=== PATIENT | female | born 1955 | race Caucasian/White ===

== ENCOUNTER 2023-04-11 06:00 | Outpatient (RCR) | payer MEDICARE, SELFPAY | END 2023-05-09 23:59 | disposition home or self-care (01) | LOC: MPT 06:00 | PROVIDERS: PCP Family Medicine; Visit Provider Family Medicine | DX: M54.59 Other low back pain (principal); R26.81 Unsteadiness on feet | CPT/HCPCS: 97110; 97140; 97162; 97530; G0283 ==

== ENCOUNTER 2023-05-10 06:00 | Outpatient (RCR) | payer MEDICARE, SELFPAY | END 2023-06-08 23:59 | disposition home or self-care (01) | LOC: MPT 06:00 | PROVIDERS: PCP Family Medicine; Visit Provider Family Medicine | DX: M54.50 Low back pain, unspecified (principal); M25.569 Pain in unspecified knee; R26.81 Unsteadiness on feet | CPT/HCPCS: 97110; 97112; G0283 ==

== ENCOUNTER 2023-06-26 10:42 | Outpatient (RCR) | payer MEDICARE, SELFPAY | END 2023-07-09 23:59 | disposition home or self-care (01) | LOC: MPT 10:42 | PROVIDERS: PCP Family Medicine; Visit Provider Family Medicine | DX: M54.59 Other low back pain (principal); M25.569 Pain in unspecified knee; R26.81 Unsteadiness on feet | CPT/HCPCS: 97110; 97112; 97140; G0283 ==

== ENCOUNTER 2023-07-10 06:00 | Outpatient (RCR) | payer MEDICARE, SELFPAY | END 2023-08-08 23:59 | disposition home or self-care (01) | LOC: MPT 06:00 | PROVIDERS: PCP Family Medicine; Visit Provider Family Medicine | DX: M54.50 Low back pain, unspecified (principal); R26.81 Unsteadiness on feet; M25.569 Pain in unspecified knee | CPT/HCPCS: 97110; 97112; G0283 ==

== ENCOUNTER 2024-01-07 06:00 | Outpatient (RCR) | payer MEDICARE, SELFPAY | END 2024-01-07 23:59 | disposition home or self-care (01) | LOC: MPT 06:00 | PROVIDERS: PCP Family Medicine; Visit Provider Neurological Surgery | DX: Z47.89 Encounter for other orthopedic aftercare (principal) | CPT/HCPCS: 97110; 97162 ==

== ENCOUNTER 2024-01-08 06:00 | Outpatient (RCR) | payer MEDICARE, SELFPAY | END 2024-02-07 23:59 | disposition home or self-care (01) | LOC: MPT 06:00 | PROVIDERS: PCP Family Medicine; Visit Provider Neurological Surgery | DX: Z98.1 Arthrodesis status (principal) | CPT/HCPCS: 97110; G0283 ==

== ENCOUNTER 2024-02-08 06:00 | Outpatient (RCR) | payer MEDICARE, SELFPAY | END 2024-02-25 23:59 | disposition home or self-care (01) | LOC: MPT 06:00 | PROVIDERS: PCP Family Medicine; Visit Provider Neurological Surgery | DX: Z98.1 Arthrodesis status (principal) | CPT/HCPCS: 97110; 97112; 97530 ==

== ENCOUNTER 2024-04-23 06:00 | Outpatient (RCR) | payer MEDICARE, SELFPAY | END 2024-05-09 23:59 | disposition home or self-care (01) | LOC: SOT 06:00 | PROVIDERS: Visit Provider Orthopaedic Surgery | DX: Z98.1 Arthrodesis status (principal) | CPT/HCPCS: 97022; 97110; 97165; 97530 ==

== ENCOUNTER 2024-05-10 06:00 | Outpatient (RCR) | payer MEDICARE, SELFPAY | END 2024-06-08 23:59 | disposition home or self-care (01) | LOC: SOT 06:00 | PROVIDERS: PCP Family Medicine; Visit Provider Orthopaedic Surgery | DX: S62.101A Fracture of unspecified carpal bone, right wrist, initial encounter for closed fracture (principal) | CPT/HCPCS: 97022; 97110 ==

== ENCOUNTER 2024-06-09 06:00 | Outpatient (RCR) | payer MEDICARE, SELFPAY | END 2024-07-09 23:59 | disposition home or self-care (01) | LOC: SOT 06:00 | PROVIDERS: PCP Family Medicine; Visit Provider Orthopaedic Surgery | DX: S52.531A Colles' fracture of right radius, initial encounter for closed fracture (principal) | CPT/HCPCS: 97022; 97110 ==

== ENCOUNTER → 2024-08-21 10:42 | Outpatient (BNVA) | payer MEDICARE, SELFPAY | PROVIDERS: PCP Family Medicine; Visit Provider Nurse Practitioner | DX: R68.89 Other general symptoms and signs (principal) | CPT/HCPCS: 87400; 87426 ==